=== PATIENT | male | born 1940 | race Caucasian/White ===

== ENCOUNTER 2018-11-11 14:05 | Inpatient (IN) | payer OTHER ==
[~2018-11-11] VITALS: Ht 175.2 cm; Wt 88.5 kg
--- NOTE | 2018-11-11 14:15 | NUR ---
PT PLACED ON TRACTOR DRIVER, NIBP, CONTINUOUS PULSE OX, EKG COMPLETE
--- NOTE | 2018-11-11 14:20 | NUR ---
PRINTER TECHNICIAN IN TO EVALUATE PT
[2018-11-11 14:25] VITALS: BP 101/62
[2018-11-11] MEDS ORDERED: LASIX40 MG PO (14:31)
[2018-11-11 14:32] LABS: BASO # 0.1 10*3/uL (0.0-0.1); BASO % 0.8 % (0.0-1.0); EOS # 0.3 10*3/uL (0.0-0.4); EOS % 3.8 % (1.0-4.0); HEMATOCRIT 34.2 % (42.0-52.0); HEMOGLOBIN 10.8 g/dl (14.0-18.0); LYMPH # 0.7 10*3/uL (1.3-4.4); LYMPH % 11.4 % (27.0-41.0); MEAN CELL VOLUME 102.7 fl (80.0-94.0); MEAN CORPUSCULAR HGB 32.4 pg (27.0-31.0); MEAN CORPUSCULAR HGB CONC 31.6 g/dl (33.0-37.0); MEAN PLATELET VOLUME 11.4 fl (9.6-12.3); MONO # 0.6 10*3/uL (0.1-1.0); MONO % 9.2 % (3.0-9.0); NEUT # 4.9 10*3/uL (2.3-7.9); NEUT % 74.5 % (47.0-73.0); PLATELET COUNT AUTOMATED 124 10*3/uL (130-400); RED BLOOD COUNT 3.33 10*6/uL (4.50-5.90); WHITE BLOOD COUNT 6.5 10*3/uL (4.8-10.8)
[2018-11-11] MEDS ORDERED: LISINOPRIL5 MG PO (14:32)
[2018-11-11] MEDS ORDERED: FISH OIL 1,0001 EAC1 PO (14:33)
[2018-11-11] MEDS ORDERED: IMDUR SA60 M1 PO (14:35)
[2018-11-11] MEDS ORDERED: TAMSULOSIN HCL0.4 MG PO (14:35)
[2018-11-11] MEDS ORDERED: COUMADIN2 M1 PO (14:36)
[2018-11-11] MEDS ORDERED: DOFETILIDE125 MCG PO (14:37)
[2018-11-11] MEDS ORDERED: VICTOZA 2-0.6 MG/0.1 SC (14:38)
[2018-11-11] MEDS ORDERED: CRESTOR20 M1 PO (14:39)
[2018-11-11] MEDS ORDERED: BASAG SOL SC (14:39)
[2018-11-11] MEDS ORDERED: CARVEDILOL25 MG PO (14:40)
[2018-11-11] MEDS ORDERED: LEVOTHYROXINE75 MCG PO (14:41)
[2018-11-11] MEDS ORDERED: RANITIDINE HCL150 M1 PO (14:41)
[2018-11-11] MEDS ORDERED: ALLOPURINOL100 MG PO (14:43)
[2018-11-11] MEDS ORDERED: POTASSIUM CHLO20 MEQ PO (14:44)
[2018-11-11 14:47] LABS: ALKALINE PHOSPHATASE 131 U/L (45-117); BUN 38 mg/dl (7-24); CHLORIDE 107 mmol/L (98-107); CREATININE 2.23 mg/dL (0.70-1.30); LIPASE 76 U/L (73-393); POTASSIUM 4.6 mmol/L (3.5-5.1); SGOT/AST 18 IU/L (3-35); SGPT/ALT 22 U/L (12-78); SODIUM 137 mmol/L (136-145); TOTAL PROTEIN 7.8 gm/dL (6.4-8.2)
--- NOTE | 2018-11-11 14:51 | NUR ---
TROPONIN 0.133 CALLED CRITICAL AT THIS TIME. CHANTAL MORALES NOTIFIED.
[2018-11-11 14:52] LABS: TROPONIN I 0.133 ng/ml (<0.045)
[2018-11-11 14:53] LABS: ACT PARTIAL THROMBO TIME 33.6 SECONDS (20.0-32.1)
--- NOTE | 2018-11-11 15:05 | NUR ---
CT AND XRAY COMPLETE
--- NOTE | 2018-11-11 15:30 | NUR ---
CLEAN CATCH UA OBTAINED, CLEAR, YELLOW URINE NOTED, SENT TO LAB ORDERED
--- NOTE | 2018-11-11 16:00 | NUR ---
ADVERTISING REPRESENTATIVE IN TO DISCUSS TEST RESULTS AND DISPOSITION WITH PT AND FAMILY
[2018-11-11 16:04] VITALS: BP 127/58
[2018-11-11 16:09] LABS: BILIRUBIN NEGATIVE (NEGATIVE); BLOOD 1+ (NEGATIVE); CLARITY CLEAR (CLEAR); COLOR YELLOW (YELLOW); GLUCOSE NEGATIVE (NEGATIVE); KETONE NEGATIVE (NEGATIVE); LEUKO ESTERASE NEGATIVE (NEGATIVE); NITRITE NEGATIVE (NEGATIVE); PH 5.5 (5.0-9.0); UROBILINOGEN 0.2 E.U./dl (0.2-1.0)
[2018-11-11 16:18] LABS: BACTERIA TRACE; EPITHELIAL CELLS 0-2; WBC 0-2 wbc/hpf (0-5)
--- NOTE | 2018-11-11 16:55 | NUR ---
PT ADMITTED TO 5TH FLOOR ON HEALTHCARE INTERPRETER WITH NO COMPLAINTS, SALINE LOCK INTACT WITH NO REDNESS OR SWELLING, RESP EASY, BELONGINGS WITH PT
--- NOTE | 2018-11-11 16:56 | NUR ---
A 78, admitted to , under the services of OLIVA Matos DO with a diagnosis of DIZZINESS, ELEVATED TROPONIN. Chief complaint is DIZZINESS. Patient arrived via bed from ER. Monitor applied. Initial assessment completed. Vital signs taken and recorded. OLIVA MATOS DO notified of admission to the unit. Orders received. See assessment for past medical history, medications and allergies. Patient and/or family oriented to unit. [facility] visitation policy reviewed. Clothing/patient valuable form completed. ARTI KRAUSE
[2018-11-11 17:00] VITALS: BP 149/81
--- NOTE | 2018-11-11 17:49 | NUR ---
ATTEMPTED TO CALL DR. ALMONTE TO REPORT CRITICAL TROPONIN OF 0.127. WILL CALL BACK.
--- NOTE | 2018-11-11 17:56 | NUR ---
MESSAGE LEFT WITH ANSWERING SERVICE FOR CONSULT FOR DR. SNOW
--- NOTE | 2018-11-11 18:08 | NUR ---
DR. COLVIN NOTIFIED OF CONSULT. WILL BE IN TO SEE PT TOMORROW
--- NOTE | 2018-11-11 18:26 | NUR ---
CONSULT CALLED TO DR. BUSBY. NO NEW ORDERS AT THIS TIME. STATES SHE WILL LOOK AT HER COMPUTER AND CALL BACK WITH ORDERS.
--- NOTE | 2018-11-11 18:35 | NUR ---
DR. ALMONTE NOTIFIED OF COMPLETE MED REC. WOUND ORDERS RECEIVED
--- NOTE | 2018-11-11 18:46 | NUR ---
DRESSING APPLIED PER ORDERS FROM DR. ALMONTE.
--- NOTE | 2018-11-11 18:46 | NUR ---
UA ORDERED PER DR. BUSBY.
[2018-11-11 20:00] VITALS: BP 138/62
--- NOTE | 2018-11-11 20:43 | NUR ---
NOTIFIED DR JAMES OF TROP 0.126. NO NEW ORDERS NOTED.
[2018-11-12] VITALS: BP 152/60
--- NOTE | 2018-11-12 06:27 | NUR ---
ALCIDES YANES [id number] Please refer to the physician's history and physical for past medical history, comorbid conditions, and allergies. Diagnosis: ELEVATED TROPONIN LEVEL I LEVEL DIZZINESS Kevyn Score: 20,LOW OR NO RISK WOUND DESCRIPTIONS: Wound Number: 1 Location of the wound: right elbow Type of wound: skin tear Thickness: Partial Size: 1.5cm x 0.5cm x 0.1cm Tunneling: none Undermining: none Sinus Tract: none Presence of Exudate: Serosanguineous Amount: Light Color: Red Odor: None Periwound Skin Appearance: ecchymotic Wound edges: approximated Pain (associated with wound): none at time of assessment How does patient state this happened? pt stated he fell yesterday Intact scab proximal to wound. No draiange noted at time of assessment. Surface the patient is resting on: Isoflex SKIN PREVENTION RECOMMENDATION: 1. Pressure redistribution support surface as appropriate 2. Elevate heels 3. Remove boots/TEDS every shift and reapply 4. Head of bed 30 degrees as tolerated 5. Assess nutrition and hydration 6. Manage moisture 7. Avoid the use of containment devices while in bed 8. Use absorptive products on surfaces limit layers of linens on bed 9. Turn and reposition every 1-2 hours in bed and every 1 hour in chair as tolerated 10. Weight shifts every 15 minutes while up in chair 11. Offloading with pillows or device to keep heels elevated off bed 12. Monitor skin at least every shift 13. Inspect under medical devices twice a day WOUND TREATMENT RECOMMENDATIONS: Clarify skin tear guidelines: Cleanse right elbow with nss and apply sureprep around the wound therahoney to wound bed and cover with optifoam gentle.
[2018-11-12 07:32] LABS: BASO % 0.6 % (0.0-1.0); EOS # 0.3 10*3/uL (0.0-0.4); EOS % 4.3 % (1.0-4.0); HEMATOCRIT 33.2 % (42.0-52.0); HEMOGLOBIN 10.5 g/dl (14.0-18.0); LYMPH # 0.7 10*3/uL (1.3-4.4); LYMPH % 10.4 % (27.0-41.0); MEAN CELL VOLUME 101.2 fl (80.0-94.0); MEAN CORPUSCULAR HGB CONC 31.6 g/dl (33.0-37.0); MEAN PLATELET VOLUME 11.5 fl (9.6-12.3); MONO # 0.6 10*3/uL (0.1-1.0); MONO % 9.6 % (3.0-9.0); NEUT # 4.9 10*3/uL (2.3-7.9); NEUT % 74.8 % (47.0-73.0); PLATELET COUNT AUTOMATED 119 10*3/uL (130-400); RED BLOOD COUNT 3.28 10*6/uL (4.50-5.90); RED CELL DISTRI WIDTH 15.9 % (0-14.5); WHITE BLOOD COUNT 6.6 10*3/uL (4.8-10.8)
[2018-11-12 07:37] LABS: INTERNATIONAL NORM RATIO 1.9 (2.0-3.5)
[2018-11-12 07:47] LABS: ALBUMIN 2.8 gm/dl (3.1-4.5); CREATININE 2.15 mg/dL (0.70-1.30); POTASSIUM 4.1 mmol/L (3.5-5.1); TOTAL PROTEIN 7.6 gm/dL (6.4-8.2)
[2018-11-12 07:54] LABS: FREE T4 0.97 ng/dl (0.76-1.46); THYROID STIM HORMONE (HS) 3.32 uIU/ml (0.358-4.75)
--- NOTE | 2018-11-12 07:56 | NUR ---
Dr. Giles notified of wound care recommendations.
[2018-11-12 08:15] LABS: VITAMIN D, 25-HYDROXY 20.8 ng/mL (30-100)
--- NOTE | 2018-11-12 08:20 | NUR ---
PATIENT ASSESSMENT COMPLETE AT THIS TIME. PATIENT DENIES ANY DISTRESS OR PAIN. CALL LIGHT WITHIN REACH. WILL CONTINUE TO MONITOR.
--- NOTE | 2018-11-12 08:46 | NUR ---
Occupational Therapy evaluation completed on 5 with full eval to follow. Precautions include fall risk,pacemaker, h/o falls d/t dizziness when ambulating, moderate complexity level 18600 via chart review, testing and evaluation. Recommend return home with and home health SN, OT,PT upon d/c. Thank you. Sneha Clark OTR/L
--- NOTE | 2018-11-12 08:46 | NUR ---
PHYSICAL THERAPY Physical therapy evaluation completed. Full details and evaluation to follow. Low complexity skilled PT evaluation completed ([id number]). PT will work on strength, balance, endurance, safety, and gait per POC. Recommend home with home health upon discharge. Thank you, Nancy Knapp,SPT Yennifer Cuellar,PT,DPT
[2018-11-12 12:00] VITALS: BP 133/88
--- NOTE | 2018-11-12 13:18 | NUR ---
NORMA THE PACER REP WAS HERE TO INTERROGATE PACER AND A STATES "NO EPISODES", BUT ALSO THAT THERE IS LESS THAN 1YR OF BATTERY LIFE, AND THAT PT AND HIS RESIDENT CARE MANAGER RN ARE AWARE.
--- NOTE | 2018-11-12 14:33 | NUR ---
Nutritional Support Services Note: Pt has scabbed area to right elbow. States he fell prior to admission. Appetite is good for meals, pt is eating 100%. Diet as ordered appropriate. No other nutrition intervention needed. Continue to encourage good po intake. Will follow as needed. Kathrine Florian Rdn Ld
--- NOTE | 2018-11-12 14:35 | NUR ---
Clinicals faxed to [facility] per [facility] request for review.
[2018-11-12 16:00] VITALS: BP 117/49
--- NOTE | 2018-11-12 16:07 | NUR ---
Spinner Open End in to talk to patient. Patient states lives at HOME with . There are FEW steps in the home. Physician: MANINDER Pharmacy: [place] [facility] Home health services: NONE Patient's level of ADLs: INDEPENDENT Patient has working utilities: YES DME: [facility] Follow-up physician's appointment after d/c: WILL BE MADE BY HOSPITALIST NURSE DIRECTOR ON DISCHARGE Does patient want to access PORTAL?: NO Discharge plan PT LIVES AT HOME WITH HIS AND IS INDEPENDENT IN CARE. DENIES HE WILL HAVE ANY NEEDS ON DISCHARGE. STATES HE WILL RETURN HOME. WILL CONTINUE TO FOLLOW. WILL HAVE A RIDE HOME PER PT. STEPH PRATER
[2018-11-12 20:00] VITALS: BP 132/51
--- NOTE | 2018-11-12 20:00 | NUR ---
24 HOUR CHART CHECK COMPLETE.
[2018-11-13] VITALS: BP 134/72
--- NOTE | 2018-11-13 05:49 | NUR ---
PRN ZOFRAN ADMINISTERED FOR PT C/O NAUSEA AND VOMITING. WILL CONTINUE TO MONITOR.
--- NOTE | 2018-11-13 06:29 | NUR ---
PT STATES HE FEELS BETTER AFTER THE ADMINISTRATION OF ZOFRAN. NO EPISODES OF VOMITING SINCE.
[2018-11-13 06:55] LABS: BASO % 0.4 % (0.0-1.0); EOS # 0.1 10*3/uL (0.0-0.4); EOS % 1.1 % (1.0-4.0); HEMATOCRIT 33.7 % (42.0-52.0); HEMOGLOBIN 10.7 g/dl (14.0-18.0); LYMPH # 0.6 10*3/uL (1.3-4.4); MEAN CELL VOLUME 100.9 fl (80.0-94.0); MEAN CORPUSCULAR HGB CONC 31.8 g/dl (33.0-37.0); MEAN PLATELET VOLUME 11.7 fl (9.6-12.3); MONO # 0.8 10*3/uL (0.1-1.0); MONO % 9.6 % (3.0-9.0); NEUT # 6.8 10*3/uL (2.3-7.9); NEUT % 81.5 % (47.0-73.0); PLATELET COUNT AUTOMATED 118 10*3/uL (130-400); RED BLOOD COUNT 3.34 10*6/uL (4.50-5.90); RED CELL DISTRI WIDTH 15.4 % (0-14.5); WHITE BLOOD COUNT 8.3 10*3/uL (4.8-10.8)
[2018-11-13 06:58] LABS: INTERNATIONAL NORM RATIO 1.8 (2.0-3.5)
[2018-11-13 07:04] LABS: CREATININE 2.38 mg/dL (0.70-1.30); PHOSPHOROUS 4.2 mg/dL (2.5-4.9); POTASSIUM 4.5 mmol/L (3.5-5.1)
--- NOTE | 2018-11-13 08:00 | NUR ---
PATIENT ASSESSMENT COMPLETE AT THIS TIME. PATIENT DID COMPLAIN OF EMESIS AGAIN, AT BEDSIDE AND AWARE, WILL REVIEW MEDICATIONS AND EVALUATE CHANGES. REST OF ASSESSMENT NEGATIVE. CALL LIGHT WITHIN REACH. WILL CONTINUE TO MONITOR.
--- NOTE | 2018-11-13 11:00 | NUR ---
PATIENT ADVISED TO HAVE BRING IN HIS TIKOSYN IN FOR PHARMACY TO VERIFY AND SO THAT WE CAN RESUME ADMINISTRATION WHILE HE IS AN INPATIENT.
[2018-11-13 12:00] VITALS: BP 105/46
--- NOTE | 2018-11-13 13:57 | NUR ---
DR MATTSON NOTIFIED OF PATIENT CONCERNS OVER HIS SHIVERING SHE SAYS THAT HE USUALLY EXHIBITS THESE SIGNS WHEN HE IS COMING DOWN WITH PNEUMONIA. ASSESSMENT WAS NEGATIVE, AFEBRILE, NO SHIVERING NOTED AT THIS TIME. NO ORDERS RECEIVED AT THIS TIME. SR MATTSON STATED WILL JUST WATCH PATIENT AND REASSESS IN AM.
[2018-11-13 16:00] VITALS: BP 121/46
--- NOTE | 2018-11-13 16:40 | NUR ---
DR. MATTSON NOTIFIED OF PATIENT HAVING THIRD EMESIS TODAY, DIET ORDERS CHANGED TO CLEAR LIQUID.
[2018-11-13 20:00] VITALS: BP 124/54
--- NOTE | 2018-11-13 20:00 | NUR ---
24 HOUR CHART CHECK COMPLETE.
--- NOTE | 2018-11-13 22:40 | NUR ---
PRN NORCO, ZOFRAN, AND DULCOLAX ADMINISTERED PRESCRIBED FOR PT C/O 5/10 BACK PAIN, NAUSEA, AND CONSTIPATION. WILL CONTINUE TO MONITOR.
[2018-11-14] VITALS: BP 116/65
--- NOTE | 2018-11-14 06:18 | NUR ---
PT BS 55 THIS MORNING. HE WAS UNABLE TO KEEP MUCH DOWN THROUGHOUT THE DAY YESTERDAY DUE TO NAUSEA AND VOMITING. PT DIDN'T EAT ANYTHING FOR ME LAST NIGHT. ADMNISTERING D10W NOW, AND GAVE THE PT A JUICE. WILL CONTINUE TO MONITOR. PT DENIES ANY SYMPTOMS. WILL RECHECK SUGAR ONCE INFUSION IS COMPLETE.
[2018-11-14 06:35] LABS: CREATININE,URINE 110.5 mg/dL (Not Estab.); MICRO ALBUMIN/CRE RATIO 1028.7 (0.0-30.0)
[2018-11-14 06:44] LABS: BASO % 0.5 % (0.0-1.0); EOS # 0.2 10*3/uL (0.0-0.4); EOS % 3.6 % (1.0-4.0); HEMATOCRIT 28.7 % (42.0-52.0); HEMOGLOBIN 9.1 g/dl (14.0-18.0); LYMPH % 16.2 % (27.0-41.0); MEAN CELL VOLUME 102.5 fl (80.0-94.0); MEAN CORPUSCULAR HGB 32.5 pg (27.0-31.0); MEAN CORPUSCULAR HGB CONC 31.7 g/dl (33.0-37.0); MEAN PLATELET VOLUME 10.9 fl (9.6-12.3); MONO # 0.7 10*3/uL (0.1-1.0); MONO % 10.3 % (3.0-9.0); NEUT # 4.4 10*3/uL (2.3-7.9); NEUT % 69.1 % (47.0-73.0); PLATELET COUNT AUTOMATED 120 10*3/uL (130-400); RED CELL DISTRI WIDTH 15.6 % (0-14.5); WHITE BLOOD COUNT 6.4 10*3/uL (4.8-10.8)
--- NOTE | 2018-11-14 06:51 | NUR ---
PT BLOOD SUGAR RECHECK WAS 179. WILL CONTINUE TO MONITOR.
[2018-11-14 07:16] LABS: INTERNATIONAL NORM RATIO 2.1 (2.0-3.5)
[2018-11-14 07:20] LABS: ALBUMIN 2.5 gm/dl (3.1-4.5); CREATININE 2.73 mg/dL (0.70-1.30); POTASSIUM 4.1 mmol/L (3.5-5.1); TOTAL PROTEIN 6.8 gm/dL (6.4-8.2)
--- NOTE | 2018-11-14 07:50 | NUR ---
24 HR chart check completed.
[2018-11-14 08:00] VITALS: BP 118/58; BP 122/64
--- NOTE | 2018-11-14 08:42 | NUR ---
DR MATTSON HERE TO ASSESS PATIENT AND DISCUSS PLAN OF CARE
--- NOTE | 2018-11-14 08:45 | NUR ---
AWAKE, FLAT AFFECT. RESPIRATIONS EASY. LUNGS DIMINISHED WITH CRACKLES. PULSE OX 97% 3L, O2 REMOVED PATIENT DOES NOT USE AT HOME. LOOSE NON-PROD COUGH. CALL LIGHT WITHIN REACH. NO VOICED COMPLAINTS
--- NOTE | 2018-11-14 08:48 | NUR ---
MEDICATED WITH DULCOLAX PER PRN ORDER FOR COMPLAINTS OF NO BM "SINCE THURSDAY." WILL MONITOR
--- NOTE | 2018-11-14 11:30 | NUR ---
PULSE OX 88% RA. O2 REAPPLIED AT 2L. PULSE OX 94-96%
--- NOTE | 2018-11-14 11:40 | NUR ---
DR Mindi AMARAL HERE TO ASSESS PATIENT AND DISCUSS PLAN OF CARE
[2018-11-14 12:00] VITALS: BP 116/58
[2018-11-14 16:00] VITALS: BP 120/61
--- NOTE | 2018-11-14 17:30 | NUR ---
TIKOSYN ADMINISTERED, EKG ORDERED
[2018-11-14 20:00] VITALS: BP 117/60
--- NOTE | 2018-11-14 20:00 | NUR ---
24 HOUR CHART CHECK COMPLETE.
--- NOTE | 2018-11-14 21:35 | NUR ---
PRN NORCO ADMINISTERED PRESCRIBED FOR PT C/O DISCOMFORT IN HIS BACK. WHEN ASKED HOW HE WOULD RATE THE PAIN HE STATES IT'S "JUST ANNOYING" AND "BOTHERS HIM MORE ON MOVEMENT". WILL CONTINUE TO MONITOR. NO OTHER COMPLAINTS AT THIS TIME. CALL LIGHT IN REACH.
--- NOTE | 2018-11-14 23:48 | NUR ---
PT ASLEEP AT THIS TIME. NO SIGNS OF DISCOMFORT OR DISTRESS NOTED.
[2018-11-15] VITALS: BP 110/64
--- NOTE | 2018-11-15 06:00 | NUR ---
PT BLOOD GLUCOSE 57 THIS MORNING DURING ROUTINE CHECK. ORANGE JUICE AND PB CRACKERS GIVEN TO PT. WILL RECHECK IN A HALF HOUR.
--- NOTE | 2018-11-15 06:31 | NUR ---
BLOOD GLUCOSE 74 AFTER PT DRANK TWO ORANGE JUICES. PB CRACKERS STILL AT BEDSIDE. PT ENCOURAGED TO EAT THEM BUT STATES HE "ISN'T HUNGRY AT THIS TIME". DENIES ANY SYMPTOMS. WILL CONTINUE TO MONITOR.
[2018-11-15 06:49] LABS: BASO % 0.5 % (0.0-1.0); EOS # 0.3 10*3/uL (0.0-0.4); EOS % 4.4 % (1.0-4.0); HEMATOCRIT 29.3 % (42.0-52.0); HEMOGLOBIN 9.3 g/dl (14.0-18.0); LYMPH # 0.7 10*3/uL (1.3-4.4); LYMPH % 9.1 % (27.0-41.0); MEAN CELL VOLUME 101.7 fl (80.0-94.0); MEAN CORPUSCULAR HGB 32.3 pg (27.0-31.0); MEAN CORPUSCULAR HGB CONC 31.7 g/dl (33.0-37.0); MEAN PLATELET VOLUME 10.8 fl (9.6-12.3); MONO # 0.7 10*3/uL (0.1-1.0); MONO % 8.6 % (3.0-9.0); NEUT # 5.8 10*3/uL (2.3-7.9); NEUT % 77.1 % (47.0-73.0); PLATELET COUNT AUTOMATED 116 10*3/uL (130-400); RED BLOOD COUNT 2.88 10*6/uL (4.50-5.90); RED CELL DISTRI WIDTH 15.3 % (0-14.5); WHITE BLOOD COUNT 7.6 10*3/uL (4.8-10.8)
[2018-11-15 06:51] LABS: INTERNATIONAL NORM RATIO 2.5 (2.0-3.5)
[2018-11-15 07:11] LABS: ALBUMIN 2.6 gm/dl (3.1-4.5); POTASSIUM 4.4 mmol/L (3.5-5.1)
[2018-11-15 07:17] LABS: CREATININE 2.71 mg/dL (0.70-1.30); PHOSPHOROUS 4.8 mg/dL (2.5-4.9); TOTAL PROTEIN 6.9 gm/dL (6.4-8.2)
[2018-11-15 08:00] VITALS: BP 119/62
[2018-11-15 12:00] VITALS: BP 129/56
--- NOTE | 2018-11-15 13:47 | NUR ---
ATTEMPTED TO CALL SISTER AND BROTHERS NUMBERS LISTED NOK ON FACESHEET TO TALK ABOUT DISCHARGE PLANS. BOTH NUMBERS ARE DISCONNECTED. PT UNABLE TO GIVE ME DIFFERENT NUMBERS AT THIS TIME. WILL CONTINUE TO FOLLOW.
--- NOTE | 2018-11-15 14:10 | NUR ---
PHYSICAL THERAPY Patient seen this pm 1:1 for therapy visit and was sitting up on EOB with several family members present upon therapist arrival. Patient presents with continuos O2-1.5L via NC and reports bouts of mild light headedness. Patient HR 82 bpm prior to treatment and transfers sit to stand CGA x 1. Patient introduced to walker, ambulating 75'x 1, CGA, demonstrating "head down" posture, decreased stride and very cautious during all turns. Patient received v/c to look up with increased stride with visual fixation technique to address bouts of light headedness. Patient returned to EOB sit reporting no new c/o's, increased fatigue and increased HR 123 bpm. Patient remained EOB sit with call light, telephone and tray table. Will continue per POC as tolerated, total treatment time 16 minutes. Da Saul, SUSTAINABILITY OFFICER
--- NOTE | 2018-11-15 14:27 | NUR ---
OT NOTE Pt was seen this P.M. 1:1 for 18 minute OT session. Upon arrival pt was sitting upright on the EOB. Pt identified by name and and had no complaints at this time. Pt completed sit to stand transfer from bed level with CGA and use of w/w for UE support. Functional mobility was completed to the [facility] and back with CGA and use of w/w. Educted pt on visual fixation techniques throughout due to complaints of feeling dizzy. Challenged pt's static standing tolerance needed for increased I in self care tasks and functional transfers, pt was able to tolerate aprox 5 minutes at a time before sitting due to fatigue. Pt was left sitting upright on the EOB with call ligh tin hand, tray table in place, and at bedside. COntinue with rec D/C plan to home with home health. MIGNON Greco/Betzaida
--- NOTE | 2018-11-15 14:32 | NUR ---
LABORATORY DIRECTOR faxed clinical updates to [facility]. -EMILIO Currie
[2018-11-15 16:00] VITALS: BP 118/50
[2018-11-15 18:20] LABS: BACTERIA 2+
[2018-11-15 18:21] LABS: COARSE GRANULAR CAST 0-2
[2018-11-15 20:00] VITALS: BP 131/48
[2018-11-16] VITALS: BP 116/81
--- NOTE | 2018-11-16 06:36 | NUR ---
Patient stated that he will care for the area to his right elbow at home when he is discharged patient stated he doesn't need to follow up outpatient.
[2018-11-16 06:42] LABS: CREATININE 3.09 mg/dL (0.70-1.30); POTASSIUM 4.6 mmol/L (3.5-5.1)
[2018-11-16 08:00] VITALS: BP 116/47
--- NOTE | 2018-11-16 10:32 | NUR ---
INSULATION CUPOLA CHARGER received notice the patient would like to be referred to [facility]. INSULATION CUPOLA CHARGER faxed new referral over to [facility]. -EMILIO Currie
[2018-11-16 12:00] VITALS: BP 126/52
--- NOTE | 2018-11-16 13:08 | NUR ---
PT NOW STATES HE WANTS TO GO TO [facility] BEFORE GOING HOME FOR THERAPY. SERVICES COORDINATOR INFORMED AND WILL SEND REFERRAL. WILL CONTINUE TO FOLLOW.
[2018-11-16 16:00] VITALS: BP 128/53
[2018-11-16 20:00] VITALS: BP 131/59
[2018-11-16 21:02] LABS: CREATININE 2.93 mg/dL (0.70-1.30); POTASSIUM 4.9 mmol/L (3.5-5.1)
--- NOTE | 2018-11-16 21:39 | NUR ---
CALLED TO CHECK ON PT LABS RESULTS. NEW ORDERS FOR IVF AND ALBUMIN REC'D. SEE APR.
[2018-11-17] VITALS: BP 119/69
[2018-11-17 02:55] LABS: URINE CREATININE RANDOM 75.4 mg/dL
[2018-11-17 06:52] LABS: CREATININE 2.79 mg/dL (0.70-1.30); POTASSIUM 4.9 mmol/L (3.5-5.1)
--- NOTE | 2018-11-17 07:16 | NUR ---
ARTIFICIAL BREAST FABRICATOR faxed updates to [facility]. -EMILIO Currie
[2018-11-17 08:00] VITALS: BP 106/64
[2018-11-17 08:10] LABS: COMPLEMENT C4 001834 23 mg/dL (14-44); HEPATITIS B SURFACE AG Negative (Negative); HEPATITIS C VIRUS ANTIBODY <0.1 s/co (0.0-0.9); TOTAL PROTEIN, SERUM 6.9 g/dL (6.0-8.5)
--- NOTE | 2018-11-17 08:45 | NUR ---
Dr. Estrella called in and was updated on pt labs. States to continue IVF at this time unless pt becomes SOB.
--- NOTE | 2018-11-17 09:35 | NUR ---
BUFFING WHEEL INSPECTOR has been accepted to [facility] and can go when medically stable. -EMILIO Currie
[2018-11-17 12:00] VITALS: BP 101/49
--- NOTE | 2018-11-17 12:04 | NUR ---
PHYSICAL THERAPY 1:1 Time: 30 Pain on a scale of 0-10 > Prior to treatment: 9 Post treatment: 9 Progress note: Patient laying supine upon arrival this date. Pt name and birthday identified prior to treatment this date. Pt stated that he was having low back pain this date and that he felt weak and dizzy at the moment. Pt reports that his blood glucose level felt low. A nurse was notified and a glucometer reading was taken prior to physical therapy treatment. Pt blood glucose level was 220. Pt performed bedside therex this date to improve lower extremity strength and functional mobility. Pt was able to transfer this date to a seated position with min assistance, however did have difficulty secondary to pain. Pt than performed therex in a seated position followed by ambulation X 20 feet. Pt IV pole unplugged and his oxygen was utilized with ambulation this date. Patient with low back pain with ambulation this date. Pt returned back to the bedside where he asked to use the urinal. He was able to stand while the therapist "looped" her arm in the opposite direction to assist the patient in standing incase the patient required lowering to the bed or was to fall. He was able to manuever with no assistance this date. He was than placed back in bed where he asked to lay on his left side. Patient bed alarm enabled and his call button was placed where he could reach for it. [employer] MARKETING VP
--- NOTE | 2018-11-17 12:19 | NUR ---
BUSINESS ADMINISTRATION TEACHER completed HENs. Patient has been accepted at [facility] and can go when medically stable. -EMILIO Currie
--- NOTE | 2018-11-17 12:24 | NUR ---
PT HAS BEEN ACCEPTED TO [facility] AND CAN GO WHEN MEDICALLY STABLE.
--- NOTE | 2018-11-17 13:15 | NUR ---
OT NOTE Pt was seen this P.M. 1:1 for 20 minute OT session. Upon arrival pt was supine in bed. Pt identified by name and and had no complaints at this time. Pt presented to therapy with continuous 2L-O2 via NC which he remained on throughout the entire session. Pt transferred supine to sit EOB with modA for assist with UB. Upon inital rise pt had complaints of dizziness. Educated pt on visual fixation techniques and after aprox 10 seconds pt stated that the dizziness had gone away. Pt then completed multiple sit to stand transfers from bed level with Elizabeth and use of w/w for UE support. Challenged pt's static standing tolerance needed for increased I in self care tasks and functinal transfers and pt was able to tolerate aprox 2 minutes at a time before sitting due to fatigue. Pt was left sitting upright on the EOB with call light in hand, tray table in place, and bed alarm activated for safety. Continue with POC as able. CHICHO Greco
[2018-11-17 14:10] LABS: A/G RATIO 0.7 (0.7-1.7); ALBUMIN 2.9 g/dL (2.9-4.4); ALPHA-1-GLOBULIN 0.3 g/dL (0.0-0.4); ALPHA-2-GLOBULIN 0.9 g/dL (0.4-1.0); BETA GLOBULIN 1.3 g/dL (0.7-1.3); GAMMA GLOBULIN 1.5 g/dL (0.4-1.8); M-SPIKE Not Observed g/dL (Not Observed)
[2018-11-17 16:00] VITALS: BP 112/58
[2018-11-17 16:08] LABS: FREE KAPPA LIGHT CHAINS 189.4 mg/L (3.3-19.4); FREE LAMBDA LIGHT CHAINS 89.6 mg/L (5.7-26.3); KAPPA/LAMBDA RATIO 2.11 (0.26-1.65)
[2018-11-17 17:10] LABS: ATYPICAL PANCA <1:20 titer (Neg:<1:20); CYTOPLASMIC (C-ANCA) <1:20 titer (Neg:<1:20)
[2018-11-17 20:00] VITALS: BP 116/48
[2018-11-17 20:14] LABS: CREATININE 2.86 mg/dL (0.70-1.30); POTASSIUM 5.1 mmol/L (3.5-5.1)
[2018-11-18] VITALS: BP 120/59
--- NOTE | 2018-11-18 00:57 | NUR ---
24 HOUR CHART CHECK COMPLETE.
--- NOTE | 2018-11-18 03:56 | NUR ---
PT THROWING FREQUENT PVC'S. CALLED INTO ANSWERING SERVICE, AWAITING CALL BACK FROM BUSINESS DEPARTMENT CHAIR.
--- NOTE | 2018-11-18 04:02 | NUR ---
SPOKE WITH DR COLVIN. STATES TO HAVE A MAGNESIUM LEVEL DRAWN IN THE AM FOR THE PT.
[2018-11-18 06:40] LABS: BASO % 0.5 % (0.0-1.0); EOS # 0.2 10*3/uL (0.0-0.4); EOS % 3.1 % (1.0-4.0); HEMOGLOBIN 9.1 g/dl (14.0-18.0); LYMPH # 0.6 10*3/uL (1.3-4.4); MEAN CELL VOLUME 102.1 fl (80.0-94.0); MEAN CORPUSCULAR HGB CONC 31.4 g/dl (33.0-37.0); MEAN PLATELET VOLUME 11.2 fl (9.6-12.3); MONO # 0.6 10*3/uL (0.1-1.0); MONO % 9.9 % (3.0-9.0); NEUT # 4.4 10*3/uL (2.3-7.9); NEUT % 76.2 % (47.0-73.0); PLATELET COUNT AUTOMATED 121 10*3/uL (130-400); RED BLOOD COUNT 2.84 10*6/uL (4.50-5.90); RED CELL DISTRI WIDTH 14.8 % (0-14.5); WHITE BLOOD COUNT 5.8 10*3/uL (4.8-10.8)
[2018-11-18 06:55] LABS: CREATININE 3.08 mg/dL (0.70-1.30)
--- NOTE | 2018-11-18 07:50 | NUR ---
PT RESTING IN BED. RESP-EASY AND REGULAR. OXYGEN IN USE. NO C/O AT THIS TIME. CALL LIGHT IN REACH. SEE SHIFT ASSESSMENT. BED ALARM ON.
--- NOTE | 2018-11-18 08:10 | NUR ---
SUPERVISOR RICE MILLING faxed updates to [facility]. -EMILIO Currie
--- NOTE | 2018-11-18 09:00 | NUR ---
ASSISTED UP TO RECLINER CHAIR. RESP-EASY AND REGULAR. OXYGEN IN USE. CALL LIGHT IN REACH. BODY ALARM ON PT.
[2018-11-18 10:08] LABS: GLOMERULAR BASEMENT AB 082719 6 units (0-20)
[2018-11-18 12:00] VITALS: BP 115/54
--- NOTE | 2018-11-18 13:03 | NUR ---
PT HAS BEEN ACCEPTED TO [facility] AND CAN GO WHEN MEDICALLY STABLE. WILL CONTINUE TO FOLLOW.
--- NOTE | 2018-11-18 13:30 | NUR ---
PHYSICAL THERAPY Patient seen this pm 1:1 for therapy visit and was sitting up in bedside chair upon therapist arrival. Patient identified by name / and was reports no new c/o's at this time. Patient also presented with continuous O2-3L via NC and transfers sit to stand with MIN A. Patient ambulates with use of wh walker, 25'x 2 to bathroom, MIN A, demonstrating slow umu and bouts of unsteady gait pattern. Patient needed v/c to stand tall with increased stride to improve gait standing balance / gait patten. Patient returned to bedside chair with mild fatigue and remained with call light, tray table, telephone and body alarm for safety. Will continue per POC as tolerated, total treatment time 16 minutes. Da Saul, CELL OPERATION SUPERVISOR
--- NOTE | 2018-11-18 13:42 | NUR ---
OT NOTE Pt was seen this P.M. 1:1 for 20 minute OT session. Upon arrival pt was sitting upright in the recliner. Pt identified by name and and had no complaints at this time. Pt presented to therapy with continuous 3L-O2 via NC which he remained on throughout the entire session. Pt completed sit to stand from chair level with modA and use of w/w for UE support. Functional mobility was then completed into the bathroom with CGA and use of w/w for UE support. Pt transferred on/off standard commode with Elizabeth and use of grab bar. Clothing management completed with Elizabeth. Functional mobility then completed back to the recliner where he was left sitting urpight with call light in hand, tray table in place, and body alarm activated for safety. Continue with POC as able. MIGNON Greco/Betzaida
[2018-11-18 16:00] VITALS: BP 122/56
--- NOTE | 2018-11-18 16:30 | NUR ---
PT SITTING UP IN RECLINER CHAIR. RESP-EASY AND REGULAR. BSG-[id number], SEE EMAR. PT REFUSES TO EAT DINNER AT THIS TIME. NO C/O AT THIS TIME. CALL LIGHT IN REACH.
--- NOTE | 2018-11-18 18:00 | NUR ---
PT SLEEPING IN RECLINER CHAIR. RESP-EASY AND REGULAR. AWAKENS EASILY. BODY ALARM ON. NO C/O AT THIS TIME. CALL LIGHT IN REACH.
[2018-11-18 20:00] VITALS: BP 127/50
--- NOTE | 2018-11-18 20:00 | NUR ---
MEDICATED WITH PERCOCET PER PRN ORDER FOR C/O HEADACHE.
[2018-11-19] VITALS: BP 125/49; BP 138/50
--- NOTE | 2018-11-19 01:46 | NUR ---
Patient sleeping. Respirations relaxed and easy. Siderails up . [place] on. CASIE ROY
--- NOTE | 2018-11-19 02:52 | NUR ---
24 CHART CHECK COMPLETE.
--- NOTE | 2018-11-19 03:44 | NUR ---
Upon discharge recommend patient to follow up for wound care in outpatient setting continue current wound care orders at discharging facility.
[2018-11-19 06:39] LABS: BASO % 0.5 % (0.0-1.0); EOS # 0.2 10*3/uL (0.0-0.4); EOS % 2.6 % (1.0-4.0); HEMATOCRIT 29.1 % (42.0-52.0); HEMOGLOBIN 9.3 g/dl (14.0-18.0); LYMPH # 0.4 10*3/uL (1.3-4.4); MEAN CELL VOLUME 100.7 fl (80.0-94.0); MEAN CORPUSCULAR HGB 32.2 pg (27.0-31.0); MEAN PLATELET VOLUME 11.6 fl (9.6-12.3); MONO # 0.6 10*3/uL (0.1-1.0); MONO % 10.5 % (3.0-9.0); NEUT # 4.6 10*3/uL (2.3-7.9); NEUT % 78.9 % (47.0-73.0); PLATELET COUNT AUTOMATED 126 10*3/uL (130-400); RED BLOOD COUNT 2.89 10*6/uL (4.50-5.90); RED CELL DISTRI WIDTH 14.8 % (0-14.5); WHITE BLOOD COUNT 5.8 10*3/uL (4.8-10.8)
--- NOTE | 2018-11-19 06:48 | NUR ---
ALCIDES YANES [id number] Please refer to the physician's history and physical for past medical history, comorbid conditions, and allergies. Diagnosis: ELEVATED TROPONIN LEVEL I LEVEL DIZZINESS Kevyn Score: 16,AT RISK WOUND DESCRIPTIONS: Wound Number: 1 Location of the wound: right elbow Type of wound: skin tear Thickness: Partial Size: 1.0cm x 0.5cm x 0.1cm Tunneling: none Undermining: none Sinus Tract: none Presence of Exudate: Serosanguineous Amount: Light Color: Red Odor: None Periwound Skin Appearance: ecchymotic Wound edges: approximated Pain (associated with wound): none at time of assessment How does patient state this happened? pt stated he fell yesterday Surface the patient is resting on: Isoflex SKIN PREVENTION RECOMMENDATION: 1. Pressure redistribution support surface as appropriate 2. Elevate heels 3. Remove boots/TEDS every shift and reapply 4. Head of bed 30 degrees as tolerated 5. Assess nutrition and hydration 6. Manage moisture 7. Avoid the use of containment devices while in bed 8. Use absorptive products on surfaces limit layers of linens on bed 9. Turn and reposition every 1-2 hours in bed and every 1 hour in chair as tolerated 10. Weight shifts every 15 minutes while up in chair 11. Offloading with pillows or device to keep heels elevated off bed 12. Monitor skin at least every shift 13. Inspect under medical devices twice a day WOUND TREATMENT RECOMMENDATIONS: Continue current skin tear guidelines.
[2018-11-19 06:56] LABS: CREATININE 2.86 mg/dL (0.70-1.30); POTASSIUM 5.1 mmol/L (3.5-5.1)
[2018-11-19 07:28] LABS: INTERNATIONAL NORM RATIO 3.3 (2.0-3.5)
--- NOTE | 2018-11-19 07:47 | NUR ---
PT HAD O2 OFF, SAO2 WAS 82%. PT NEEDED BUMPED UP TO 4 L TO RETURN TO SATS OF 92%
[2018-11-19 08:00] VITALS: BP 102/54
--- NOTE | 2018-11-19 10:35 | NUR ---
PHYSICAL THERAPY Patient seen this am 1:1 for therapy visit and was sitting up on EOB upon therapist arrival. Patient indentified by name / and reports R side neck pain upon swallowing. Nurse was notified and therapy continued with sit to stand transfer MIN A. Patient ambulated 10' x 1 to bathroom, walker, CGA, demonstrating POOR walker safety / navigation. Patient ambulated additional 30'x 1, walker, CGA, demonstrating uneven stride and needed v/c to stand tall / closer to walker. Patient also presented with continuos O2-4L via NC and returned to bedside chair following treatment. Patient remained in chair with call light, tray table, telephone and body alarm for safety. Will continue per POC as tolerated, total treatment time 16 minutes. Da Saul, FLIGHT COMMUNICATIONS SPECIALIST
--- NOTE | 2018-11-19 10:45 | NUR ---
OT NOTE Pt was seen this A.M. 1:1 for 20 minute OT session. Upon arrival pt was sitting upright on the EOB. Pt identified by name and and had complaints of R sided throat pain when swallowing. Pt presented to therapy with continuous 4L-O2 via NC which he remained on throughout the entire session. Pt completed sit to stand from bed level with CGA and use of w/w for UE support. Functional mobility completed into the bathroom with Elizabeth and constant verbal prompts due to poor walker safety and navigation. Pt stood at commode while completing toileting tasks with CGA for safety. Pt then stood sink side while washing his hands with CGA and maxA to correct walker safety. Functional mobility completed back to the recliner where he was left sitting upright with call light in hand, tray table in place, and body alarm activated for safety. Continue with POC as able. MIGNON Greco/Betzaida
--- NOTE | 2018-11-19 11:57 | NUR ---
PT HAS BEEN ACCEPTED TO [facility] AND CAN GO WHEN MEDICALLY STABLE.
[2018-11-19 12:00] VITALS: BP 105/62
[2018-11-19 16:00] VITALS: BP 116/44
--- NOTE | 2018-11-19 16:35 | NUR ---
PHYSICAL THERAPY CO-SIGN I approve of the Physical Therapy notes written above. MICHA VAZQUEZ PT,DPT
[2018-11-19 20:00] VITALS: BP 112/43
--- NOTE | 2018-11-19 20:15 | NUR ---
PT HR [address] SANTIAGO NOTIFIED AND ORDER TO MONITOR PT AND TO HOLD COREG FOR TONIGHT. IF PT BECOMES SYMPTOMATIC TO CALL BACK.
[2018-11-20] VITALS: BP 122/45
[2018-11-20 06:42] LABS: BASO % 0.6 % (0.0-1.0); EOS # 0.2 10*3/uL (0.0-0.4); EOS % 3.4 % (1.0-4.0); HEMATOCRIT 29.4 % (42.0-52.0); HEMOGLOBIN 9.6 g/dl (14.0-18.0); LYMPH # 0.6 10*3/uL (1.3-4.4); LYMPH % 13.8 % (27.0-41.0); MEAN CELL VOLUME 100.7 fl (80.0-94.0); MEAN CORPUSCULAR HGB 32.9 pg (27.0-31.0); MEAN CORPUSCULAR HGB CONC 32.7 g/dl (33.0-37.0); MEAN PLATELET VOLUME 11.5 fl (9.6-12.3); MONO # 0.5 10*3/uL (0.1-1.0); NEUT # 3.3 10*3/uL (2.3-7.9); NEUT % 70.8 % (47.0-73.0); PLATELET COUNT AUTOMATED 134 10*3/uL (130-400); RED BLOOD COUNT 2.92 10*6/uL (4.50-5.90); WHITE BLOOD COUNT 4.7 10*3/uL (4.8-10.8)
[2018-11-20 07:04] LABS: CREATININE 2.53 mg/dL (0.70-1.30); INTERNATIONAL NORM RATIO 3.3 (2.0-3.5); POTASSIUM 4.9 mmol/L (3.5-5.1)
[2018-11-20 08:00] VITALS: BP 110/66
[2018-11-20 12:00] VITALS: BP 112/64
--- NOTE | 2018-11-20 13:55 | NUR ---
NOTIFIED THAT PATIENT WAS UP TO THE BATHROOM AND STAFF NOTICED BRIGHT RED BLEEDING IN TOILET.
--- NOTE | 2018-11-20 14:54 | NUR ---
NOTIFIED OF NEW CONSULT ORDER. ORDER RECEIVED TO NOT TRANSFUSE [facility]. NOTIFIED OF THIS ORDER.
[2018-11-20 16:00] VITALS: BP 110/62
[2018-11-20 20:00] VITALS: BP 116/62; BP 123/51
--- NOTE | 2018-11-20 20:10 | NUR ---
PATIENT AWAKE AND ALERT LAYING IN BED. PATIENT C/O BEING COLD AND AN EAR ACHE- RIGHT SIDE. DENIES ANY DIZZINESS AT THIS TIME. PATIENT PROVIDED WARM BLANKET. NO 0THER COMPLAINTS AT THIS TIME. BED ALARM ON.CALL LIGHT WITHIN REACH.
--- NOTE | 2018-11-20 21:21 | NUR ---
TYLENOL ADMINISTERED FOR COMPLAINTS OF RIGHT EAR AND THROAT PAIN. WILL MONITOR FOR EFFECTIVENESS.
--- NOTE | 2018-11-20 22:21 | NUR ---
PATIENT STATES THAT TYLENOL WAS EFFECTIVE FOR RIGHT EAR AND THROAT PAIN. WILL MONITOR.
[2018-11-21] VITALS: BP 120/52
--- NOTE | 2018-11-21 02:11 | NUR ---
PATIENT RESTING WITH EYES CLOSED. RESPIRATIONS EASY AND UNLABORED. BED ALARM ON, CALL BLACKBURN WITHIN REACH. WILL MONITOR.
--- NOTE | 2018-11-21 04:58 | NUR ---
24 HR chart check completed.
--- NOTE | 2018-11-21 05:45 | NUR ---
PATIENT BLOOD SUGAR 44, PT DENIES ANY DIZZINESS OR SWEATS. PATIENT PROVIDED 2 CUPS OF ORANGE JUICE AND CRACKERS. WILL RECHECK.
--- NOTE | 2018-11-21 06:15 | NUR ---
RECHECK BLOOD SUGAR 53. PATIENT PROVIDED 2 MORE ORANGE JUICES AND CRACKERS. WILL RECHECK CLOOD SUGAR.
[2018-11-21 06:27] LABS: BASO % 0.7 % (0.0-1.0); EOS # 0.2 10*3/uL (0.0-0.4); EOS % 4.5 % (1.0-4.0); HEMATOCRIT 26.8 % (42.0-52.0); HEMOGLOBIN 8.5 g/dl (14.0-18.0); LYMPH # 0.7 10*3/uL (1.3-4.4); LYMPH % 16.5 % (27.0-41.0); MEAN CELL VOLUME 98.5 fl (80.0-94.0); MEAN CORPUSCULAR HGB 31.3 pg (27.0-31.0); MEAN CORPUSCULAR HGB CONC 31.7 g/dl (33.0-37.0); MEAN PLATELET VOLUME 11.1 fl (9.6-12.3); MONO # 0.5 10*3/uL (0.1-1.0); MONO % 10.2 % (3.0-9.0); NEUT # 3.1 10*3/uL (2.3-7.9); NEUT % 67.9 % (47.0-73.0); PLATELET COUNT AUTOMATED 151 10*3/uL (130-400); RED BLOOD COUNT 2.72 10*6/uL (4.50-5.90); RED CELL DISTRI WIDTH 14.9 % (0-14.5); WHITE BLOOD COUNT 4.5 10*3/uL (4.8-10.8)
[2018-11-21 06:54] LABS: CREATININE 2.23 mg/dL (0.70-1.30); POTASSIUM 4.2 mmol/L (3.5-5.1)
[2018-11-21 06:59] LABS: INTERNATIONAL NORM RATIO 2.8 (2.0-3.5)
[2018-11-21 08:00] VITALS: BP 116/64
[2018-11-21 12:00] VITALS: BP 130/56
--- NOTE | 2018-11-21 12:45 | NUR ---
Spoke with Dr. Hassan for permission to remove monitor technician so patient can be showered. Per physician monitor may be removed to shower.
--- NOTE | 2018-11-21 13:30 | NUR ---
With assistance by staff. Patient ambulated to shower. After his shower patient had a bowel movement with no signs of blood or dark stools. Patient was then wheeled to visit his and son. The family had a late lunch together and spent time visiting.
[2018-11-21 16:00] VITALS: BP 120/70
--- NOTE | 2018-11-21 16:05 | NUR ---
Patient was wheeled back to his room. He tolerated the afternoon activities well, with c/o stiffness in his knees and back.
[2018-11-21 20:00] VITALS: BP 133/56; BP 134/58
[2018-11-22] VITALS (9 sets, daily range): BP systolic 102–128; BP diastolic 38–78
--- NOTE | 2018-11-22 00:39 | NUR ---
24 HR chart check completed.
--- NOTE | 2018-11-22 03:55 | NUR ---
ALCIDES YANES [id number] Please refer to the physician's history and physical for past medical history, comorbid conditions, and allergies. Diagnosis: ELEVATED TROPONIN LEVEL I LEVEL DIZZINESS Kevyn Score: 16,AT RISK WOUND DESCRIPTIONS: (New skin impairment) Wound Number: 2 Location of the wound: right behind ear Type of wound: stage 4 Thickness: Partial Size: 0.5cm x 0.3cm x 0.1cm Tunneling: none Undermining: none Sinus Tract: none Presence of Exudate: Serosanguineous Amount: Light Color: Red Odor: None Periwound Skin Appearance: Normal Wound edges: approximated Pain (associated with wound): none at time of assessment How does patient state this happened? pt stated from oxygen tubing Surface the patient is resting on: Isoflex SKIN PREVENTION RECOMMENDATION: 1. Pressure redistribution support surface as appropriate 2. Elevate heels 3. Remove boots/TEDS every shift and reapply 4. Head of bed 30 degrees as tolerated 5. Assess nutrition and hydration 6. Manage moisture 7. Avoid the use of containment devices while in bed 8. Use absorptive products on surfaces limit layers of linens on bed 9. Turn and reposition every 1-2 hours in bed and every 1 hour in chair as tolerated 10. Weight shifts every 15 minutes while up in chair 11. Offloading with pillows or device to keep heels elevated off bed 12. Monitor skin at least every shift 13. Inspect under medical devices twice a day WOUND TREATMENT RECOMMENDATIONS: Stage 4 guidelines: Cleanse behind right ear with nss and apply sureprep around the wound hydrogel to wound bed and cover with dsd daily and prn for soiling.
--- NOTE | 2018-11-22 04:00 | NUR ---
NEW WOUND NOTED ON BACK OF PATIENT'S RIGHT EAR FROM OXYGEN TUBING. PICTURE TAKEN. [facility] C[facility] NURSE IN TO SEE PATIENT. PADDING FOR OXYGEN TUBING PLACED ON OXYGEN TUBING. SEE ORDERS.
[2018-11-22 06:39] LABS: BASO % 0.8 % (0.0-1.0); EOS # 0.2 10*3/uL (0.0-0.4); EOS % 4.2 % (1.0-4.0); HEMATOCRIT 28.3 % (42.0-52.0); HEMOGLOBIN 9.1 g/dl (14.0-18.0); LYMPH # 0.8 10*3/uL (1.3-4.4); LYMPH % 14.4 % (27.0-41.0); MEAN CELL VOLUME 101.1 fl (80.0-94.0); MEAN CORPUSCULAR HGB 32.5 pg (27.0-31.0); MEAN CORPUSCULAR HGB CONC 32.2 g/dl (33.0-37.0); MEAN PLATELET VOLUME 10.6 fl (9.6-12.3); MONO # 0.4 10*3/uL (0.1-1.0); MONO % 7.8 % (3.0-9.0); NEUT # 3.8 10*3/uL (2.3-7.9); NEUT % 72.2 % (47.0-73.0); PLATELET COUNT AUTOMATED 161 10*3/uL (130-400); RED CELL DISTRI WIDTH 14.8 % (0-14.5); WHITE BLOOD COUNT 5.3 10*3/uL (4.8-10.8)
[2018-11-22 07:23] LABS: CREATININE 2.13 mg/dL (0.70-1.30); POTASSIUM 4.4 mmol/L (3.5-5.1)
--- NOTE | 2018-11-22 08:54 | NUR ---
Spoke with Rissa COOLEY regarding wound care recommendations she stated its okay to put them in.
--- NOTE | 2018-11-22 09:10 | NUR ---
OT NOTE Pt was seen this A.M. 1:1 for 20 minute OT session. Upon arrival pt was supine in bed. Pt identified by name and and had no complaints at this time. Pt presented to therapy with continuous 2L-O2 via NC which he remained on throughout the entire session. Pt transferred supine to sit EOB with Elizabeth for assist with UB. While sitting EOB pt donned B socks with Elizabeth due to pt having LOB to the left which then required modA to correct. Sit to stand completed from bed level with Elizabeth and use of w/w for UE support. Functional mobility then completed into the bathroom with CGA and use of w/w. Pt transferred on to standard commode with Elizabeth and off with modA and use of grab bar for UE support. Clothing management completed with Elizabeth and toilet hygiene completed with Elizabeth while standing. Pt then stood sink side while washing his hands, pt had LOB backwards and also to the L side that required Elizabeth to correct. Pt was left sitting upright in the recliner with call light in hand, tray table in place, and body alarm activated for safety. Continue with POC as able. MIGNON Greco/Betzaida
--- NOTE | 2018-11-22 09:57 | NUR ---
pt sitting up in chair. pt asked if bowel movements area now clear and his answer was "its liquid" pt now aware to notify rn with next stool to assess if needs additional tap water enema
--- NOTE | 2018-11-22 10:01 | NUR ---
PHYSICAL THERAPY Patient presented to therapy in supine position with bed alarm activated and report of havign to go to the bathroom and no pain. Patient was identified by name and . Patient gives informed consent for treatment. Patient performed supine to sitting at EOB transfer with SBA. Patient performed sit to stand from EOB with MIN A X 2 and verbal cues for pushing off of EOB. Patient ambulated with Wh Walker and CGA X 1 for 30' x 1 to chair in hallway, where he sat with CGA X 1. Patient performed TUG TEST IN 50 SECONDS with CGA X 1 and required MOD X 2 SIT TO STAND with Wh Walker and NO LOB. Patient performed sit to stands from low chair with MOD A X 2 and verbal cues for pushing off the chair with one hand. Patient required CGA X 1 and verbal cues for upright posture, pushing down on Walker and safe turns. Patient ambulated another 50' x 1 with Wh Walker and CGA X 1 back to bedside chair. Patient sat wit hCGA X 1 with Verbal cues for puttign hands back on armrests of chair. Patient is on 2 liters of spO2 VIA NASAL CANULA. Patient was left in bed side chair with call light within reach, chair alarm tested and attached and LEs in low position. Patient was 1:1 with this EASEMENT MAN for 25 minutes total. FUNMI FAJARDO EASEMENT MAN
--- NOTE | 2018-11-22 11:38 | NUR ---
PT WILL GO TO [facility] WHEN MEDICALLY STABLE. WILL CONTINUE TO FOLLOW.
--- NOTE | 2018-11-22 13:11 | NUR ---
BSG 68. PT SHAKING AND COLD. SKIN ASYMPOTMATIC FOR CLAMINESS.INFORMED BERNICE BUSH THAT D10 IS GOING TO BE GIVEN. NO NEW ORDERS AT THIS TIME. AGREED WITH D10.
--- NOTE | 2018-11-22 16:06 | NUR ---
BSG 160 FOLLOWING D10 INFUSION.
--- NOTE | 2018-11-22 17:38 | NUR ---
NURSE TO NURSE REPORT REC'D FROM SURGERY. WILL BE RETURNING TO ROOM/FLOOR SOON.
--- NOTE | 2018-11-22 21:56 | NUR ---
BSG 91. ASYMPOTMATIC. SITTING UP ON BSC. COMPLETE CHANGE AT THIS TIME FOR DIARRHEA. AIDES IN ROOM.
[2018-11-23] VITALS: BP 117/58
--- NOTE | 2018-11-23 | NUR ---
RESTING IN BED WITH EYES CLOSED. 02 INTACT. BED ALARM ON; BED IN LOW LOCKED POSITION. CALL LIGHT WITHIN REACH.
--- NOTE | 2018-11-23 05:42 | NUR ---
BLOOD SUGAR 67; TOOK PATIENT MILK, OJ & PEANUT BUTTER & NOE CRACKERS.
--- NOTE | 2018-11-23 06:20 | NUR ---
BLOOD SUGAR 104.
[2018-11-23 06:24] LABS: BASO % 0.6 % (0.0-1.0); EOS # 0.1 10*3/uL (0.0-0.4); EOS % 2.4 % (1.0-4.0); HEMATOCRIT 28.9 % (42.0-52.0); HEMOGLOBIN 9.2 g/dl (14.0-18.0); LYMPH # 0.7 10*3/uL (1.3-4.4); LYMPH % 13.7 % (27.0-41.0); MEAN CELL VOLUME 101.4 fl (80.0-94.0); MEAN CORPUSCULAR HGB 32.3 pg (27.0-31.0); MEAN CORPUSCULAR HGB CONC 31.8 g/dl (33.0-37.0); MONO # 0.4 10*3/uL (0.1-1.0); MONO % 7.9 % (3.0-9.0); PLATELET COUNT AUTOMATED 145 10*3/uL (130-400); RED BLOOD COUNT 2.85 10*6/uL (4.50-5.90); RED CELL DISTRI WIDTH 14.8 % (0-14.5); WHITE BLOOD COUNT 5.3 10*3/uL (4.8-10.8)
[2018-11-23 06:36] LABS: ALBUMIN 2.9 gm/dl (3.1-4.5); CREATININE 1.96 mg/dL (0.70-1.30); POTASSIUM 4.4 mmol/L (3.5-5.1)
[2018-11-23 06:49] LABS: INTERNATIONAL NORM RATIO 3.2 (2.0-3.5)
--- NOTE | 2018-11-23 07:55 | NUR ---
CHIEF CARDIOPULMONARY TECHNOLOGIST faxed updates to [facility]. Patient is able to go to [facility] when medically stable. -EMILIO Currie
--- NOTE | 2018-11-23 08:50 | NUR ---
PHYSICAL THERAPY Patient seen this am 1:1 for therapy visit and was awakening supine in bed upon therapist arrival. Patient identified by name / and presents with continuos O2-2L via NC, voicing no new c/o's at this time. Patient transfers supine to sit EOB with MOD A, then sit to stand MIN A x 1. Patient ambulates with use of wh walker, CGA, 30'x 1, demonstrating very slow, unsteady gait pattern and LOB x 1. Patient needed v/c to increased stride and increased focus on task to improve safety awareness. Patient returned to bedside chair and following brief rest performed seated B LE therex, all planes 2 x 10 to increase LE strength. Patient remained in chair with call light, tray table, telephone and body alarm for safety. Will continue per POC as tolerated, total treatment time 24 minutes. Da Saul, MUSICIAN INSTRUMENTAL
--- NOTE | 2018-11-23 10:40 | NUR ---
OT NOTE Pt was seen this A.M. 1:1 for 24 minute OT session. Upon arrival pt was sitting upright in the recliner. Pt identified by name and and had complaints of "feeling fuzzy in the head today." Pt presented to therapy with continuous 2L-O2 via NC which he remained on throughout the entire session. While seated pt doffed and donned B socks with Elizabeth for inital start over his toes. Pt was then educated on compensatory technique for increased I, pt had fiar carry over throughout. Pt completed multiple sit to stand transfers from the chair level with modA and education provided on proper hand placement for increased I and improved technique. Upon inital rise pt presented with retrograde posture that required modA to correct. Challenged pt's static standing tolerance needed for increased I in self care tasks and functional transfers, pt was able to tolerate aprox 2 minutes at a time before sitting due to fatigue. Functional mobility completed to the bathroom and back with CGA and use of w/w. Throughout turns pt presented with poor safety awareness, educated pt on safe turning technique and pt had poor carry over throughout. Pt was left sitting upright in the recliner with call light in hand, tray table in place, and body alarm activated for safety. Continue with POC as indicated. MIGNON Greco/Betzaida
--- NOTE | 2018-11-23 11:24 | NUR ---
PT CAN BE DISCHARGED TO [facility] WHEN MEDICALLY STABLE. WILL CONTINUE TO FOLLOW.
[2018-11-23 12:00] VITALS: BP 107/49
--- NOTE | 2018-11-23 13:00 | NUR ---
PHYSICAL THERAPY Patient seen this pm 1;1 for therapy visit and was sitting up in bedside chair upon therapist arrival. Patient identified by name / and reports no c/o's pain. Patient presents with continuous O2-2L via NC and performed seated B LE therex, all planes, x 15 reps each, while needing v/c to increase full AROM. Patient also completed several sit to stand transfers, Min A, with wh walker standing support. Patient remained in bedside chair with call light, tray table, telephone and body alarm for safety. Will continue per POC as tolerated, total treatment time 15 minutes. Da Saul, TEACHER VISUALLY IMPAIRED
[2018-11-23 16:00] VITALS: BP 110/51
--- NOTE | 2018-11-23 16:34 | NUR ---
OCCUPATIONAL THERAPY CO-SIGN I approve of the Occupational Therapy notes written above. KATIE JACOBS OTR/Betzaida
[2018-11-23 20:00] VITALS: BP 126/92
[2018-11-23 20:45] VITALS: BP 120/58
[2018-11-24] VITALS (7 sets, daily range): BP systolic 78–122; BP diastolic 36–81
--- NOTE | 2018-11-24 | NUR ---
PT SLEEPING. NO SIGNS OF DISTRESS NOTED. BED IN LOWEST POSTION. WHEELS LOCKED. CALL LIGHT WIHTIN REACH. WILL CONTINUE TO MONITOR.
[2018-11-24 06:35] LABS: HEMATOCRIT 30.7 % (42.0-52.0); HEMOGLOBIN 9.9 g/dl (14.0-18.0); MEAN CELL VOLUME 100.7 fl (80.0-94.0); MEAN CORPUSCULAR HGB 32.5 pg (27.0-31.0); MEAN CORPUSCULAR HGB CONC 32.2 g/dl (33.0-37.0); MEAN PLATELET VOLUME 11.8 fl (9.6-12.3); PLATELET COUNT AUTOMATED 157 10*3/uL (130-400); RED BLOOD COUNT 3.05 10*6/uL (4.50-5.90); RED CELL DISTRI WIDTH 15.1 % (0-14.5); WHITE BLOOD COUNT 9.2 10*3/uL (4.8-10.8)
[2018-11-24 06:46] LABS: ALBUMIN 2.9 gm/dl (3.1-4.5)
[2018-11-24 06:52] LABS: CREATININE 2.18 mg/dL (0.70-1.30); PHOSPHOROUS 3.6 mg/dL (2.5-4.9); TOTAL PROTEIN 7.4 gm/dL (6.4-8.2)
[2018-11-24 06:58] LABS: INTERNATIONAL NORM RATIO 2.9 (2.0-3.5)
[2018-11-24 07:07] LABS: TOTAL CELLS COUNTED 100 #CELLS
[2018-11-24 07:08] LABS: OVALOCYTES FEW; PLATELET SUFFICIENCY NORMAL (NORMAL); SCHISTOCYTES FEW
--- NOTE | 2018-11-24 07:47 | NUR ---
CCO faxed updates to [facility]. Patient is able to go to [facility] when medically stable. -EMILIO Currie
--- NOTE | 2018-11-24 08:20 | NUR ---
PHYSICAL THERAPY Patient seen this am 1;1 for therapy visit and was supine in bed upon therapist arrival. Patient identified by name / and presented with continuos O2-3L via NC. Patient reports mild fatiuge, but no c/o's pain this morning while transfering supinet to sit EOB with MOD A. Patient completed sit to stand MOD A and ambulated with use of wh walker, MIN A 15'x 1, then additional 10'x 1 prior to quick onset of fatigue. Patient needed bedside chair brought over for seated rest due to fatigue and remained in chair near bed with call light, tray table, telephone and body alarm for safety. Will continue per POC as tolerated, total treatment time 14 minutes. Da Saul, DOCTOR OF CHIROPRACTIC
--- NOTE | 2018-11-24 08:30 | NUR ---
OT NOTE Pt was seen this A.M. 1:1 for 26 minute OT session. Upon arrival pt was supine in bed. Pt identified by name and and had no complaints at this time. Pt presented to therapy with continuous 3L-O2 via NC which he remained on throughout the entire session. Pt's resting SpO2 was 96%. Pt transferred supine to sit EOB with modA. While sitting EOB challenged pt's static sitting balance needed for increased I and enhanced safety. Pt was able to maintain F/F- sitting balance with occasional L lateral lean requiring Elizabeth to correct. Sit to stand completed from bed level with modA and use of w/w for UE support. Functional mobility completed into the bathroom with Elizabeth due to requiring assist with the walker due to poor safety awareness and poor walker navigation. There he transferred on/off standard commode with Elizabeth and use of grab bar for UE support. Clothing management completed with modA and toilet hygiene completed with Elizabeth. Pt then stood sink side while washing his hands with CGA, pt had multiple LOB backwards and to the left that required Elizabeth. Pt had quick onset of fatigue that required a seated rest. Pt was left sitting reclined in the recliner with call light in hand, tray table in place, and body alarm activated for safety. Continue with POC as able. CHICHO Greco
[2018-11-24] MEDS ORDERED: ALLOPURINOL100 MG PO (10:54)
[2018-11-24] MEDS ORDERED: Humalog SQ (10:54)
--- NOTE | 2018-11-24 12:10 | NUR ---
PLAN IS FOR PT TO DISCHARGE TO [facility] TODAY. WILL CONTINUE TO FOLLOW.
--- NOTE | 2018-11-24 13:04 | NUR ---
TYLENOL GIVEN FOR TEMP OF 100.4. WILL MONITOR. CALL LIGHT IN REACH. BODY ALARM ON.
--- NOTE | 2018-11-24 13:51 | NUR ---
PT HAD ELEVATED TEMP. DISCHARGE CANCELLED FOR TODAY.
[2018-11-24 18:18] LABS: BILIRUBIN NEGATIVE (NEGATIVE); BLOOD TRACE-INTACT (NEGATIVE); CLARITY SL CLOUDY (CLEAR); COLOR YELLOW (YELLOW); GLUCOSE NEGATIVE (NEGATIVE); KETONE NEGATIVE (NEGATIVE); LEUKO ESTERASE NEGATIVE (NEGATIVE); NITRITE NEGATIVE (NEGATIVE); SPECIFIC GRAVITY 1.025 (1.005-1.030); UROBILINOGEN 0.2 E.U./dl (0.2-1.0)
[2018-11-24 18:26] LABS: BACTERIA TRACE; RBC 0-2 rbc/hpf (0-2); WBC 0-2 wbc/hpf (0-5)
--- NOTE | 2018-11-24 19:06 | NUR ---
ZOFRAN GIVEN FOR NAUSEA. WILL MONITOR. CALL LIGHT IN REACH. BED ALARM ON.
--- NOTE | 2018-11-24 19:16 | NUR ---
ON FLOOR ROUNDING AT SHIFT CHANGE. STOPPED IN [place] PRIVATELY TO DISCUSS PT. PT MORE DROSWY TODAY THEN WHEN I HAD HIM PREVIOUSLY. EASY TO AROUSE BUT QUICKLY FALLS BACK TO SLEEP. PT WAS MORE ALERT AND AWAKE YESTERDAY. PT NOW C/O NAUSEA, ZOFRAN WAS GIVEN. ORDERED TO CLOSELY MONITOR AND NOTIFY OF ANY CHANGES.
--- NOTE | 2018-11-24 22:30 | NUR ---
NOTIFIED DR AYOUB OF PATIENTS BP 78/36 AND DROWSY. UNABLE TO STAY AWAKE FOR ASSESSMENT. STATED THEY WOULD BE UP TO SEE HIM.
--- NOTE | 2018-11-24 22:41 | NUR ---
DR AYOUB AND DR GREENE ON FLOOR TO SEE PATIENT AT THIS TIME.
[2018-11-24 23:24] LABS: HEMATOCRIT 28.7 % (42.0-52.0); HEMOGLOBIN 9.2 g/dl (14.0-18.0)
[2018-11-25] VITALS: BP 92/50
[2018-11-25 02:00] VITALS: BP 114/43
--- NOTE | 2018-11-25 02:10 | NUR ---
NOTIFIED DR AYOUB OF PATIENTS REPEAT BP AFTER FLUID BOLUS 114/43. NO NEW ORDERS AT THIS TIME. WILL CONTINUE TO MONITOR.
[2018-11-25 04:00] VITALS: BP 129/73
--- NOTE | 2018-11-25 05:55 | NUR ---
PATIENT MEDICATED WITH 0600 MEDICATIONS WITHOUT ISSUE. AWAKE/ALERT AT THIS TIME. C/O A HEADACHE AND MEDICATED WITH PRN TYLENOL ORDERED. NO FURTHER VOICED COMPLAINTS.
[2018-11-25 06:48] LABS: HEMATOCRIT 31.1 % (42.0-52.0); HEMOGLOBIN 9.9 g/dl (14.0-18.0); MEAN CELL VOLUME 100.3 fl (80.0-94.0); MEAN CORPUSCULAR HGB 31.9 pg (27.0-31.0); MEAN CORPUSCULAR HGB CONC 31.8 g/dl (33.0-37.0); MEAN PLATELET VOLUME 11.9 fl (9.6-12.3); PLATELET COUNT AUTOMATED 127 10*3/uL (130-400); RED CELL DISTRI WIDTH 15.1 % (0-14.5)
--- NOTE | 2018-11-25 06:48 | NUR ---
NOTIFIED DR GREENE OF PATIENT BEING LETHARGIC, PALE, UNABLE TO ANSWER QUESTIONS, GURGLING WHEN TRYING TO BREATHE, OPENS EYES WHEN TALKING TO PATIENT BUT UNABLE TO STAY AROUSED. STATED HE WOULD BE UP TO SEE PATIENT. PATIENTS VITALS 73/43, O2 ON 2LNC 70%. PLACED ON FACE MASK, O2 92%. ORDERS TO TRANSFER PATIENT TO ICCU. WHILE PREPARING TO TRANSFER PATIENT PULSE LOST AND CODE WAS CALLED.
[2018-11-25 06:49] LABS: INTERNATIONAL NORM RATIO 2.8 (2.0-3.5)
[2018-11-25 07:10] VITALS: BP 81/52
[2018-11-25 07:10] LABS: ALBUMIN 2.6 gm/dl (3.1-4.5); CREATININE 2.9 mg/dL (0.70-1.30); POTASSIUM 5.3 mmol/L (3.5-5.1)
--- NOTE | 2018-11-25 07:10 | NUR ---
PT ARRIVED FROM 5E POST CODE BLUE INTUBATED. SBP 80'S. LEVOPHED GTT STARTED ON ARRIVAL TO ICCU. PACED RYTHMN 70'S. TEMP 101.2. NON RESPONSIVE TO PAINFUL STIMULI.
--- NOTE | 2018-11-25 07:11 | NUR ---
2 PERIPHERAL IV SITES PLACED ON ARRIVAL TO ICCU.
--- NOTE | 2018-11-25 07:16 | NUR ---
[facility] ON MONITOR CODE BLUE CALLED. SEE CODE BLUE SHEET.
--- NOTE | 2018-11-25 07:20 | NUR ---
PT. PLACED ON VENT IN CCU 5 FOLLOWING CODE IN 512. SETTINGS VT 550, FIO2 100%, RATE 12. ALARMS ON AND FUNCTIONAL, PT CODED AGAIN,PT. TAKEN OFF VENT AND MANUALLY VENTILATED DURING CODE.
[2018-11-25 07:31] LABS: TOTAL CELLS COUNTED 100 #CELLS
[2018-11-25 07:32] LABS: SCHISTOCYTES FEW
[2018-11-25 07:33] LABS: BURR CELLS FEW; PLATELET SUFFICIENCY LOW (NORMAL)
--- NOTE | 2018-11-25 08:10 | NUR ---
On-call called and they are placing a hold on the patient for possible skin donation. Reference [id number].
--- NOTE | 2018-11-25 09:55 | NUR ---
Informations faxed to [facility] per their request. Family remains at bedside.
--- NOTE | 2018-11-25 10:47 | NUR ---
PT'S BODY SENT [place] [facility] [place]
--- NOTE | 2018-11-25 10:56 | NUR ---
BODY TO [place] AT 1045 - SPOKE WITH [facility] AGAIN AND THEY WANTED TO REVIEW SOME QUESTIONS THEY HAVE. REVIEWED MORE PROGRESS NOTES & LABS. THEY WILL CALL AGAIN.
--- NOTE | 2018-11-25 11:11 | NUR ---
DISCHARGE PICTURES NOT TAKEN D/T
--- NOTE | 2018-11-25 11:18 | NUR ---
RECEIVED A CALL FROM [facility] AND THEY ARE GOING TO RELEASE THE BODY AND WE CAN RELEASE THE BODY TO THE HOME. DOROTHY CALLED.
--- NOTE | 2018-11-26 15:58 | NUR ---
OCCUPATIONAL THERAPY CO-SIGN I approve of the Occupational Therapy notes written above. KATIE JACOBS OTR/Betzaida
--- NOTE | 2018-11-26 16:35 | NUR ---
PHYSICAL THERAPY CO-SIGN I approve of the Physical Therapy notes written above. LAMBERT MITCHELL, PT, DPT
== END 2018-11-25 07:45 | disposition expired | DRG 682 ==
LOC: ED 14:05 → 5E 16:06 → EDHOLD 16:06 → 5E 16:23 → ICCU 11-25 07:12
PROVIDERS: Family Medicine; Internal Medicine; Internal Medicine Nephrology; Nurse Practitioner Family; Registered Nurse; Student in an Organized Health Care Education/Training Program; ADMIT Emergency Medicine
PROC: 0DJD8ZZ Inspection of Lower Intestinal Tract, Via Natural or Artificial Opening Endoscopic (ICD-10-PCS; principal; 2018-11-22)
DX: N17.0 Acute kidney failure with tubular necrosis (principal); I50.33 Acute on chronic diastolic (congestive) heart failure; K57.31 Diverticulosis of large intestine without perforation or abscess with bleeding; E44.0 Moderate protein-calorie malnutrition; I24.8 Other forms of acute ischemic heart disease; I13.0 Hypertensive heart and chronic kidney disease with heart failure and stage 1 through stage 4 chronic kidney disease, or unspecified chronic kidney disease; E87.1 Hypo-osmolality and hyponatremia; I44.2 Atrioventricular block, complete; I42.9 Cardiomyopathy, unspecified; N18.4 Chronic kidney disease, stage 4 (severe); E86.0 Dehydration; D53.9 Nutritional anemia, unspecified; D69.6 Thrombocytopenia, unspecified; D72.810 Lymphocytopenia; E83.41 Hypermagnesemia; R74.8 Abnormal levels of other serum enzymes; G31.9 Degenerative disease of nervous system, unspecified; E04.1 Nontoxic single thyroid nodule; M1A.9XX0 Chronic gout, unspecified, without tophus (tophi); E11.65 Type 2 diabetes mellitus with hyperglycemia; E03.9 Hypothyroidism, unspecified; E78.5 Hyperlipidemia, unspecified; E11.22 Type 2 diabetes mellitus with diabetic chronic kidney disease; N40.0 Benign prostatic hyperplasia without lower urinary tract symptoms; E87.8 Other disorders of electrolyte and fluid balance, not elsewhere classified; I48.0 Paroxysmal atrial fibrillation; I50.810 Right heart failure, unspecified; I46.9 Cardiac arrest, cause unspecified; Z79.01 Long term (current) use of anticoagulants; I25.2 Old myocardial infarction; Z79.4 Long term (current) use of insulin; Z95.1 Presence of aortocoronary bypass graft; Z79.899 Other long term (current) drug therapy; Z95.810 Presence of automatic (implantable) cardiac defibrillator; Z95.2 Presence of prosthetic heart valve; Z86.73 Personal history of transient ischemic attack (TIA), and cerebral infarction without residual deficits; Z68.26 Body mass index [BMI] 26.0-26.9, adult